=== PATIENT | male | born 1980 | race Caucasian/White ===

== ENCOUNTER 2017-05-22 08:58 | Emergency (ER) | payer OTHER, MEDICAID ==
[2017-05-22] MEDS ORDERED: ONDANSETRON 4 MG TAB.RAPDIS PO ONE (09:47)
[2017-05-22] MEDS ORDERED: MORPHINE SULFATE 10 MG/ML INJ IM ONE (09:47)
[2017-05-22] MEDS ORDERED: PREDNISONE 20 MG TABLET PO ONE (09:47)
--- NOTE | 2017-05-22 09:47 | ER Document Report ---
ED Fall - General Mode of Arrival: Ambulatory Information source: Patient TRAVEL OUTSIDE OF THE [place] IN LAST 30 DAYS: No - General Chief Complaint: Abdominal Pain Stated Complaint: BACK PAIN Time Seen by Provider: 05/22/17 09:22 Notes: Patient is a 37-year-old male that presents to the emergency department today with complaints of low back pain. Patient has had a low back fusion in the past , approximately 3 or 4 months ago. Patient states he slipped and fell when taking a shower 2 nights ago. Patient denies any incontinence. (PRADIP CORDOVA) - Related data Allergies/Adverse Reactions: No Known Allergies Allergy (Verified 05/22/17 09:00) Home Medications: Current Home Medications Prazosin HCl 6 mg PO DAILY 05/22/17 [History] Trazodone HCl [Desyrel] 150 mg PO DAILY 05/22/17 [History] Vortioxetine Hydrobromide [Brintellix] 20 mg PO DAILY 05/22/17 [History] Past Medical History - General Information source: Patient - Social History Smoking Status: Never Smoker Cigarette use (# per day): No Chew tobacco use (# tins/day): No Frequency of alcohol use: Rare Drug Abuse: None Lives with: Family Family History: Reviewed & Not Pertinent Patient has suicidal ideation: No Patient has homicidal ideation: No Musculoskeltal Medical History: Reports Hx Musculoskeletal Deformity, Reports Hx Musculoskeletal Trauma Psychiatric Medical History: Reports: Hx Depression, Hx Post Traumatic Stress Disorder Past Surgical History: Reports: Hx Appendectomy, Hx Orthopedic Surgery - [facility] right and left hip - Immunizations Hx Diphtheria, Pertussis, Tetanus Vaccination: Yes Review of Systems - Review of Systems Constitutional: No symptoms reported EENT: No symptoms reported Cardiovascular: No symptoms reported Respiratory: No symptoms reported Gastrointestinal: No symptoms reported Genitourinary: No symptoms reported Male Genitourinary: No symptoms reported Musculoskeletal: See HPI, Back pain Skin: No symptoms reported Hematologic/Lymphatic: No symptoms reported Neurological/Psychological: No symptoms reported -: Yes All other systems reviewed and negative Physical Exam - Vital signs Vitals: Temp Pulse Resp BP Pulse Ox 97.9 F 99 18 174/97 H 97 05/22/17 09:00 05/22/17 09:00 05/22/17 09:00 05/22/17 09:00 05/22/17 09:00 - Notes Notes: Physical Exam: General: Alert, appears uncomfortable. HEENT: Normocephalic. Atraumatic. PERRL. Extraocular movements intact. Oropharynx clear. Neck: Supple. Non-tender. Respiratory: No respiratory distress. Clear and equal breath sounds bilaterally. Cardiovascular: Regular rate and rhythm. Abdominal: Normal Inspection. Non-tender. No distension. Normal Bowel Sounds. Back: Right paraspinal lumbar tenderness with palpation. Tenderness to palpation over L3-L5, right SI joint, and right buttock. No deformity or step off. Extremities: Moves all four extremities. Upper extremities: Normal inspection. Normal ROM. Lower extremities: Normal inspection. No edema. Normal ROM. Neurological: Normal cognition. AAOx4. Normal speech. Psychological: Normal affect. Normal Mood. Skin: Warm. Dry. Normal color. (PRADIP CORDOVA) Course - Re-evaluation Re-evalutation: 05/22/17 14:11 Patient is a 37-year-old male who had a recent fall in the bathroom at home. Patient landed on his right side. Patient also had a recent spinal surgery approximately 3 months ago. He is neurovascularly intact and has 5 out of 5 strength and range of motion of his toes feet and ankles knees and hips. X-ray of his back and pelvis with no acute findings. Patient is having pain down the back of his right leg consistent with sciatica. He will be discharged home with pain medication and steroids. He is to call his back doctor this week for further follow-up and recommendations. No evidence for acute intraspinal pathology. Able to ambulate. Stable for discharge. (EMBER PINEDA) - Vital Signs Vital signs: Temp Pulse Resp BP Pulse Ox 98.7 F 84 16 145/101 H 91 L 05/22/17 11:19 05/22/17 11:19 05/22/17 11:19 05/22/17 11:19 05/22/17 11:19 Discharge - Discharge Clinical Impression: Lower back injury Qualifiers: Encounter type: initial encounter Qualified Code(s): S39.92XA - Unspecified injury of lower back, initial encounter Sciatica Qualifiers: Laterality: right Qualified Code(s): M54.31 - Sciatica, right side Condition: Stable Disposition: HOME, SELF-CARE Instructions: Low Back Pain ([facility]), Sciatica ([facility]) Additional Instructions: Please follow up with your back doctor this week. Prescriptions: Carisoprodol [Soma 350 Mg Tablet] 350 mg PO BIDP PRN #14 tablet PRN Reason: Methylprednisolone [Medrol Dosepack (4 mg/Tab) 21 Tab/Dosepak] 4 mg PO ASDIR PRN #21 tab.ds.pk PRN Reason: Oxycodone HCl/Acetaminophen [Percocet 5-325 mg Tablet] 1 - 2 tab PO Q4H PRN #15 tablet PRN Reason: Scribe Attestation: 05/22/17 14:12 I personally performed the services described in the documentation, reviewed and edited the documentation which was dictated to the scribe in my presence, and it accurately records my words and actions. (EMBER PINEDA) Scribe Documentation - Scribe Written by Scribe:: Gerardo Baker, 05/22/2017 1248 acting as scribe for :: Stephane
--- NOTE | 2017-05-22 10:15 | RADIOLOGY REPORT (SQ) ---
EXAM DESCRIPTION: PELVIS AP COMPLETED DATE/TIME: 05/22/2017 10:08 am REASON FOR STUDY: fall, pain COMPARISON: None. NUMBER OF VIEWS: One view TECHNIQUE: AP Pelvis LIMITATIONS: None. FINDINGS: MINERALIZATION: Normal. HIPS: No acute fracture or dislocation. No worrisome bone lesions. PELVIS AND SACRUM: No acute fracture or dislocation. No worrisome bone lesions. PUBIS AND ISCHIUM: No acute fracture. LOWER LUMBAR SPINE: No significant findings as visualized. SOFT TISSUES: No findings. OTHER: No other significant finding. IMPRESSION: NEGATIVE STUDY OF THE PELVIS. TECHNICAL DOCUMENTATION: JOB ID: [id number] [employer]- All Rights Reserved
--- NOTE | 2017-05-22 10:18 | RADIOLOGY REPORT (SQ) ---
EXAM DESCRIPTION: L SPINE WHOLE COMPLETED DATE/TIME: 05/22/2017 10:08 am REASON FOR STUDY: fall, pain COMPARISON: None. NUMBER OF VIEWS: Five views including obliques. TECHNIQUE: AP, lateral, oblique, and sacral radiographic images acquired of the lumbar spine. LIMITATIONS: None. FINDINGS: MINERALIZATION: Normal. SEGMENTATION: Normal. No transitional anatomy. ALIGNMENT: Normal. VERTEBRAE: No fracture or other worrisome bone lesion. Hardware remains intact. DISCS: Preserved height. No significant osteophytes or end plate irregularity. POSTERIOR ELEMENTS: Pedicles and facets are intact. No pars defect or posterior arch defects. HARDWARE: Posterior rods with screws through the pedicles. Disc implant at L4-5. PARASPINAL SOFT TISSUES: Normal. PELVIS: Intact as visualized. No fractures or worrisome bone lesions. SI joints intact. OTHER: No other significant finding. IMPRESSION: Surgical changes with no acute abnormality. TECHNICAL DOCUMENTATION: JOB ID: [id number] [employer]- All Rights Reserved
[2017-05-22 11:25] VITALS: BP 145/101
== END 2017-05-22 11:25 | disposition home or self-care (01) ==
LOC: ER 08:58
DX: S39.92XA Unspecified injury of lower back, initial encounter (principal); M54.31 Sciatica, right side; R10.9 Unspecified abdominal pain; M54.9 Dorsalgia, unspecified; Z79.899 Other long term (current) drug therapy; W18.2XXA Fall in (into) shower or empty bathtub, initial encounter
CPT/HCPCS: 99283; 96372; 72110; 72170; S0119; J2270; J7512

== ENCOUNTER 2018-05-03 21:57 | Emergency (ER) | payer OTHER, MEDICAID ==
[2018-05-03 22:30] LABS: APPEARANCE,URINE CLEAR; BILIRUBIN,URINE NEGATIVE (NEGATIVE); COLOR,URINE YELLOW; GLUCOSE, URINE NEGATIVE (NEGATIVE); KETONES,URINE NEGATIVE (NEGATIVE); LEUKOCYTE ESTERASE,URINE NEGATIVE (NEGATIVE); NITRITE,URINE NEGATIVE (NEGATIVE); PROTEIN,URINE NEGATIVE (NEGATIVE); URINE SPECIFIC GRAVITY 1.012; UROBILINOGEN,URINE NEGATIVE mg/dL (<2.0)
[2018-05-03] MEDS ORDERED: OXYCODONE-ACETAMINOPHEN 5-325 MG TABLET PO ONE (22:56)
[2018-05-03] MEDS ORDERED: ONDANSETRON 4 MG TAB.RAPDIS PO ONE (22:56)
--- NOTE | 2018-05-03 23:03 | ER Document Report ---
ED Fall - General Chief Complaint: Rib Pain Stated Complaint: FALL Time Seen by Provider: 05/03/18 22:50 Notes: Patient is a 38-year-old male that comes to the emergency department for chief complaint of fall. He states he was on a ladder and he lost his balance and fell landing on his right side. He reports pain to his arm, ribs, and mainly in his right hip. He can walk but with a limp. He denies numbness, incontinence, difficulty breathing, abdominal pain, chest pain, head injury, headache, passing out, back pain. He is not on a blood thinner. He reports history of right hip surgery with scope but no hardware placed. TRAVEL OUTSIDE OF THE [place] IN LAST 30 DAYS: No - Related data Allergies/Adverse Reactions: No Known Allergies Allergy (Verified 05/22/17 09:00) Past Medical History - General Information source: Patient - Social History Smoking Status: Never Smoker Frequency of alcohol use: None Drug Abuse: None Lives with: Family Family History: Reviewed & Not Pertinent Renal/ Medical History: Denies: Hx Peritoneal Dialysis Musculoskeletal Medical History: Reports Hx Musculoskeletal Deformity, Reports Hx Musculoskeletal Trauma Psychiatric Medical History: Reports: Hx Depression, Hx Post Traumatic Stress Disorder Past Surgical History: Reports: Hx Appendectomy, Hx Orthopedic Surgery - [facility] right and left hip - Immunizations Hx Diphtheria, Pertussis, Tetanus Vaccination: Yes Review of Systems - Review of Systems Constitutional: No symptoms reported EENT: No symptoms reported Cardiovascular: No symptoms reported Respiratory: No symptoms reported Gastrointestinal: No symptoms reported Genitourinary: No symptoms reported Male Genitourinary: No symptoms reported Musculoskeletal: See HPI Skin: No symptoms reported Hematologic/Lymphatic: No symptoms reported Neurological/Psychological: No symptoms reported Physical Exam - Notes Notes: GENERAL: Alert, interacts well. No acute distress. HEAD: Normocephalic, atraumatic. EYES: Pupils equal, round, and reactive to light. Extraocular movements intact. ENT: Oral mucosa moist, tongue midline. Oropharynx unremarkable. Airway patent. Nares patent, no nasal septal hematoma, TM's intact. NECK: Full range of motion. Supple. Trachea midline. LUNGS: Clear to auscultation bilaterally, no wheezes, rales, or rhonchi. No respiratory distress. Minimal questionable tenderness over the right mid ribs, no swelling, ecchymosis, or crepitus. Chest nontender otherwise. HEART: Regular rate and rhythm. No murmur ABDOMEN: Soft, non-tender. Non-distended. Bowel sounds present in all 4 quadrants. No signs of trauma. GENITOURINARY: Deferred EXTREMITIES: Ecchymosis noted over the right femoral head/proximal hip area, range of motion intact at the hip, knee, normal distal neurovascular exam. Abrasions that are superficial with bruising over the right forearm up to the elbow and then over the distal arm towards the elbow. No significant swelling or severe tenderness. Full range of motion at the shoulder, elbow, wrist. Normal distal neurovascular exam. BACK: no cervical, thoracic, lumbar midline tenderness. No saddle anesthesia, normal distal neurovascular exam. NEUROLOGICAL: Alert and oriented x3. Normal speech. [cranial nerves II through XII grossly intact]. PSYCH: Normal affect, normal mood. SKIN: Warm, dry, normal turgor. No rashes or lesions noted. Course - Re-evaluation Re-evalutation: Patient alert, does not appear to be in any distress. He does have bruising to the forearm and arm, however he has full range of motion. He also has bruising over the right femoral area. He is able to ambulate with minimal discomfort. No pain over the abdomen or chest except for minimal possible tenderness over the mid right ribs (reports mild pain, no reaction on palpation), no signs of trauma over the abdomen or chest. No reported back pain, no midline tenderness , no signs of back trauma. No neurological deficits. No vomiting or head injury. X-rays of the forearm, upper arm, chest, ribs, pelvis, hip do not show any fractures, dislocation, or acute abnormality. Incidental findings of some patchy consolidation on bilateral lower lungs possibly atelectasis versus infiltrate. Patient has no shortness of breath, hypoxia, tachycardia, tachypnea , chest pain, or signs of respiratory difficulty. On reevaluation patient without significant change from prior. On reevaluation I ambulated patient around the room, he did this without any assistance and quite easily. I have low suspicion of any spinal cord injury, intra-abdominal pathology, or acute intrathoracic pathology based on his evaluation. Discussed findings with patient and significant other, discussed expectations, therapy, follow-up, and return precautions in detail. Patient and significant other state understanding and agreement. Discharge - Discharge Clinical Impression: Rib pain on right side, Right hip pain Fall from ladder Qualifiers: Encounter type: initial encounter Qualified Code(s): W11.XXXA - Fall on and from ladder, initial encounter Injury of right lower arm Qualifiers: Encounter type: initial encounter Qualified Code(s): S59.911A - Unspecified injury of right forearm, initial encounter Injury of right upper arm Qualifiers: Encounter type: initial encounter Qualified Code(s): S49.91XA - Unspecified injury of right shoulder and upper arm, initial encounter Condition: Stable Disposition: HOME, SELF-CARE Additional Instructions: Your imaging does not show any fractures or concerning findings from the fall at this time. Evaluation is consistent with skin abrasion and soft tissue swelling. This will take time to resolve. He will be very sore for the next few days. Rest, take your medications, take [id number] anti-inflammatory such as ibuprofen or naproxen, take the muscle relaxer as prescribed. Apply ice to your hip, arm. Return if you worsen including passing out, vomiting, difficulty breathing, numbness, or any other concerning or worsening symptoms. Prescriptions: Methocarbamol [Robaxin 750 mg Tablet] 750 mg PO Q6 #20 tablet Referrals: ROB MORENO MD [NO LOCAL MD] - Follow up as needed
--- NOTE | 2018-05-04 00:11 | RADIOLOGY REPORT (SQ) ---
2 VIEWS OF RIGHT FOREARM HISTORY: Fall from ladder. COMPARISON: None. FINDINGS: Bone mineralization is normal. No acute fracture or malalignment. Joint spaces are preserved. Soft tissues are unremarkable. IMPRESSION: No acute findings.
--- NOTE | 2018-05-04 00:20 | RADIOLOGY REPORT (SQ) ---
EXAM DESCRIPTION: XR HIP 2 OR MORE VIEWS COMPLETED DATE/TME: 05/03/2018 22:57 CLINICAL HISTORY: 38 years, Male, fall, bruising, pain COMPARISON: None. NUMBER OF VIEWS: 2 TECHNIQUE: Single frontal view of the pelvis and lateral view of the RIGHT hip was obtained. LIMITATIONS: None. FINDINGS: Postoperative changes of the lower lumbar spine with surgical screws traversing the bilateral pedicles of L4-L5. Mild degenerative change of the bilateral hips with minimal femoral acetabular joint space narrowing, subchondral sclerosis and osteophyte formation. No fracture or dislocation. IMPRESSION: No acute radiographic findings. If there remains clinical concern for fracture, further evaluation with CT may be considered. 2011 [facility]- All Rights Reserved
--- NOTE | 2018-05-04 00:23 | RADIOLOGY REPORT (SQ) ---
EXAM DESCRIPTION: XR RIBS UNILATERAL WITH CHEST COMPLETED DATE/TME: 05/03/2018 22:57 CLINICAL HISTORY: 38 years, Male, fall, bruising, pain COMPARISON: None. NUMBER OF VIEWS: 4 TECHNIQUE: Single frontal view, PA of the chest and three views of the right-sided ribs were obtained in multiple projection. LIMITATIONS: None. FINDINGS: Chest: Unremarkable cardiac and mediastinal silhouette. Heart size is normal. Patchy opacities of the bilateral lung bases may be secondary to subsegmental atelectasis versus consolidation including aspirate. Low lung volumes otherwise grossly clear without focal opacity, pneumothorax or pleural effusions. Ribs: The visualized bones are within normal limits. IMPRESSION: 1. Patchy opacities of the bilateral lung bases may be secondary to subsegmental atelectasis versus consolidation including aspirate. 2. No findings to suggest etiology of the patient's right-sided rib pain. 2011 [facility] [facility]- All Rights Reserved
[2018-05-04] MEDS ORDERED: HYDROCODONE/ACETAMINOPHEN 5-325 MG (6 TAB/ER DISP) PO PRN (01:14)
[2018-05-04 02:30] VITALS: BP 173/100
== END 2018-05-04 00:51 | disposition home or self-care (01) ==
LOC: ER 21:57
DX: S70.01XA Contusion of right hip, initial encounter (principal); S50.11XA Contusion of right forearm, initial encounter; S70.11XA Contusion of right thigh, initial encounter; S49.91XA Unspecified injury of right shoulder and upper arm, initial encounter; R07.81 Pleurodynia; M25.551 Pain in right hip; W11.XXXA Fall on and from ladder, initial encounter; Y92.009 Unspecified place in unspecified non-institutional (private) residence as the place of occurrence of the external cause
CPT/HCPCS: 99284; 81001; 73090; 73502; 71101; S0119

== ENCOUNTER 2018-12-20 22:56 | Emergency (ER) | payer OTHER, MEDICARE ==
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
--- NOTE | 2018-12-21 01:01 | RADIOLOGY REPORT (SQ) ---
EXAM DESCRIPTION: XR ANKLE 3 OR MORE VIEWS COMPLETED DATE/TME: 12/21/2018 00:33 CLINICAL HISTORY: 38 years, Male, pain injury hx of previous surgery COMPARISON: None. NUMBER OF VIEWS: 3 TECHNIQUE: 3 view right ankle LIMITATIONS: None. FINDINGS: Lateral soft tissue swelling. Well-corticated ossific density near the medial malleolus measuring 2.5 mm consistent with age indeterminate tiny avulsion fracture. No other evidence for acute fracture or dislocation IMPRESSION: Lateral soft tissue swelling with possible tiny avulsion fracture near the medial malleolus copyright 2010 [employer]- All Rights Reserved
[2018-12-21] MEDS ORDERED: OXYCODONE-ACETAMINOPHEN 5-325 MG TABLET PO ONE (01:06)
--- NOTE | 2018-12-21 01:06 | RADIOLOGY REPORT (SQ) ---
EXAM DESCRIPTION: XR FOOT 3 OR MORE VIEWS COMPLETED DATE/TME: 12/21/2018 00:33 CLINICAL HISTORY: 38 years, Male, pain injury hx of previous surgery COMPARISON: None. NUMBER OF VIEWS: 3 TECHNIQUE: 3 view right foot LIMITATIONS: None. FINDINGS: Diffuse soft tissue swelling. Negative for acute fracture or dislocation IMPRESSION: Soft tissue swelling. No acute fracture copyright 2010 [employer] All Rights Reserved
[2018-12-21 02:30] VITALS: BP 138/86
== END 2018-12-21 01:30 | disposition home or self-care (01) ==
LOC: ER 22:56
PROC: 2W3QX1Z Immobilization of Right Lower Leg using Splint (ICD-10-PCS; principal; 2018-12-20)
DX: S82.51XA Displaced fracture of medial malleolus of right tibia, initial encounter for closed fracture (principal); S93.401A Sprain of unspecified ligament of right ankle, initial encounter; M25.571 Pain in right ankle and joints of right foot; M79.671 Pain in right foot; X50.1XXA Overexertion from prolonged static or awkward postures, initial encounter; Z87.891 Personal history of nicotine dependence
CPT/HCPCS: 99283

== ENCOUNTER 2019-02-26 11:41 | Day surgery (SDC) | payer OTHER, MEDICARE ==
[2019-02-26] MEDS ORDERED: LIDOCAINE 2% INJ-PF (100 MG/5 ML) SYRINGE ONE (12:28)
[2019-02-26] MEDS ORDERED: PROPOFOL INJ 200 MG/20 ML VIAL IV ONE (12:28)
--- NOTE | 2019-02-26 14:50 | Operative Report ---
Operative Report DATE OF SURGERY: 02/26/19 Operative Report: The risks, benefits and alternatives are discussed with the patient in detail the patient is taken to the OR and placed in the left lateral position Propofol medication is provided The esophagus, stomach and duodenum are examined retroflexion is performed PREOPERATIVE DIAGNOSIS: nausea and vomiting POSTOPERATIVE DIAGNOSIS: gastritis and duodenitis OPERATION: EGD with biopsy SURGEON: AMILCAR MARKS ANESTHESIA: LMAC TISSUE REMOVED OR ALTERED: as noted above COMPLICATIONS: none ESTIMATED BLOOD LOSS: none INTRAOPERATIVE FINDINGS: as noted above PROCEDURE: Patient tolerated his procedure well no post procedure complications are noted discharge date 02/26/19 discharge diet : regular discharge activity: normal follow up in 2-3 weeks patient is instructed to call the office or go to ED if any problems follow up on the pathology
[2019-02-26] MEDS ORDERED: LACTATED RINGERS 1000 ML IV PRN (16:00)
[2019-02-26] MEDS ORDERED: LIDOCAINE 0.5% INJ-PF (5 MG/ML) 50 ML SDV SUBCUT PRN (16:00)
[2019-02-26 16:21] VITALS: BP 129/76
== END 2019-02-26 15:50 | disposition home or self-care (01) ==
LOC: OROUT 11:41
PROVIDERS: ATTEND Internal Medicine Gastroenterology
DX: K29.50 Unspecified chronic gastritis without bleeding (principal); K29.80 Duodenitis without bleeding; K31.7 Polyp of stomach and duodenum; G47.30 Sleep apnea, unspecified; K21.9 Gastro-esophageal reflux disease without esophagitis
CPT/HCPCS: 88342 ×2; 88305 ×2; 00731; J2001; J2704; 731